=== PATIENT | female | born 1960 | race Caucasian/White ===

== ENCOUNTER → 2024-01-18 00:27 | Outpatient (CLI) | payer MEDICAID, SELFPAY ==
--- NOTE | 2024-01-18 | DI.MAMMO_ITS ---
Exam(s) MAMMO SCREENING EXAM: MAMMO SCREENING the [facility] CLINICAL HISTORY: SCREENING TECHNIQUE: Bilateral full field digital CC and MLO mammographic images were obtained with 3D tomosyn thesis and utilizing computer aided detection (CAD). COMPARISON: Available for comparison. FINDINGS: Masses/Architectural Distortion: None seen. Microcalcifications: No suspicious pleomorphic-type are seen. Skin Thickening/Nipple Retraction: None. IMPRESSION: 1. No significant interval change with no specific features of malignancy noted. 2. Unless there is more urgent need, screening mammography is recommended, as per [employer] guidelines. BI-RADS Category 1 - Negative Breast Density - Category C - Heterogeneously dense Breast density category C or D implies that the patient has dense breast tissue. Dense breast tissue is very common and is not abnormal but dense breast tissue can make it harder to find cancer on a ma mmogram. Also, dense breast tissue may increase their breast cancer risk. This information about the result of the mammogram report was provided to the patient to raise their awareness. Use this report when you speak with the patient about their risks for breast cancer, which includes their family hist ory. At that time, you may recommend for more screening tests (Ultrasound or MRI) as they might be us eful based on their risk. A negative radiographic report should not delay biopsy if a dominant or clinically suspicious mass is present. Up to ten percent of cancers are not identified on mammography. A negative report may reinforce clinical impression. Adenosis and dense breasts may obscure an underlying neoplasm. False positive reports average 6 to 10%. Patient will receive a letter notifying them of these results.
== END ==
PROVIDERS: PCP Obstetrics & Gynecology; Visit Provider Internal Medicine
DX: Z12.31 Encounter for screening mammogram for malignant neoplasm of breast (principal)
CPT/HCPCS: 77063; 77067

== ENCOUNTER → 2024-06-26 01:17 | Outpatient (CLI) | payer MEDICAID, SELFPAY ==
--- NOTE | 2024-06-26 | ETT_ITS ---
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 Rest Stress HR Resting HR Supine: 68 bpm Max Heart Rate (APMHR): 158 bpm Resting HR Standin bpm Target HR (85% APMHR): 134 bpm Max HR Achieved: 136 bpm % of APMHR: 86 Recovery HR: 80 bpm HR response to stress: Normal HR response to stress BP Resting BP Supine: 140/76 mmHg Resting BP Standin/68 mmHg Max BP: 168/88 mmHg Recovery BP: 128/78 mmHg BP response to stress: Normal blood pressure response to stress. ECG Resting ECG: Sinus Rhythm Ectopy: None Stress ECG: Sinus Tachycardia ST Change: No significant ST segment changes noted Arrhythmia: None Recovery ECG: Sinus Rhythm Recovery ST Change: No significant ST segment changes noted Recovery Arrhythmia: None Clinical Reason for Termination: Fatigue Stress Symptoms: 4/10 central sharp chest pain Exercise duration: 06 min30 sec Highest Stage Reached: Stage 3: 3.4 mph at 14% grade. Exercise capacity: 7.79 METs Angina Score: Non-Limiting Rate Pressure Product: [id number] Stress ECG Conclusion 1. Resting electrocardiogram showed low voltage 2. Patient exercised on the Hans protocol completed a workload of 7.79 METS 3. Normal heart rate and blood pressure response to exercise. The patient achieved 86% of predicted heart rate for age 4. There is no electrocardiographic evidence of myocardial ischemia 5. There were no dysrhythmias Stress Test Summary STAGE Time (mins) Speed (mph) Grade (%) HR BP SpO2 SYMPTOMS METS Supine 68 140/76 Standing 73 130/68 1 3 1.7 10 120 154/80 97% 4.5 2 6 2.5 12 132 160/88 95% 4/10 sharp chest pain 7 3 9 3.4 14 135 3/10 sharp chest pain 10 1 min recovery 111 168/88 95% 3 min recovery 82 140/78 97% Chest pain resolved 6 min recovery 80 128/78 96%
== END ==
PROVIDERS: PCP Obstetrics & Gynecology; Visit Provider Internal Medicine
DX: R06.09 Other forms of dyspnea (principal)
CPT/HCPCS: 93017

== ENCOUNTER 2024-07-10 05:12 | Outpatient (CLI) | payer MEDICAID, SELFPAY ==
[2024-07-10] MEDS: Levalbuterol HFA 15 GM INH 4 PUFF IH (15:47)
[2024-07-10] MEDS: Inhaler, Assist Device 1 EACH MC (15:47)
--- NOTE | 2024-07-14 15:40 | W.PFT ---
Date of service: 07/10/24 Time of Service: 13:00 Pulmonary Function Test Result Requesting Provider Kim Robles Indications: DONALDSON Impression Spirometry shows normal FEV1/FVC at 86%. Normal FEV1 and FVC. Patient declined lung volumes portion Normal diffusion and 94%. Normal flow volume curve Clinical Correlation therefore is recommended.
== END 2024-07-10 05:13 | disposition home or self-care (01) ==
PROVIDERS: PCP Obstetrics & Gynecology; Visit Provider Internal Medicine
DX: R06.09 Other forms of dyspnea (principal)
CPT/HCPCS: 00123; 94060; 94729

== ENCOUNTER 2024-08-05 08:18 | Outpatient (CLI) | payer MEDICAID, SELFPAY ==
--- NOTE | 2024-08-05 08:15 | RT.EKG_ITS ---
APPROVED REPORT Exam: Resting ECG Reason for Exam: RI SCAD Patient Location: O HR:55 bpm ECG Measurements Heart Rate 55 AXIS TN 160 P 25 QRSd 117 QRS 20 QT 423 T 4 QTc 405 Conclusion Sinus rhythm...normal P axis, V-rate 50- 99 Normal Electrocardiogram
== END 2024-08-05 08:19 | disposition home or self-care (01) ==
LOC: DI.CARD 08:18
PROVIDERS: PCP Obstetrics & Gynecology; Visit Provider Internal Medicine Cardiovascular Disease
DX: I21.4 Non-ST elevation (NSTEMI) myocardial infarction (principal)
CPT/HCPCS: 93010

== ENCOUNTER 2024-08-11 03:24 | Outpatient (CLI) | payer MEDICAID, SELFPAY ==
--- NOTE | 2024-08-11 | DI.US_ITS ---
APPROVED REPORT EXAM: Comprehensive 2D, Doppler, and color-flow Echocardiogram Patient Location: Out-Patient Inspection Machine Tender: Madie Peters RDCS (AE) Indications: Dyspnea Other Information Study Quality: Adequate Conclusion Normal left ventricular wall thickness and chamber size. Ejection fraction is 60%. Wall motion is n ormal Normal right ventricular size and function Both atria are normal in size There is no structural or hemodynamically significant valvular disease Wall motion Left Ventricle The left ventricle is normal size. The left ventricular systolic function is normal. The left ventric ular ejection fraction is within the normal range. There is normal left ventricular wall thickness. T here is normal LV segmental wall motion. There is no ventricular septal defect visualized. LVEF is 60 %. Right Ventricle The right ventricle is normal size. The right ventricular systolic function is normal. Atria The left atrium size is normal. The right atrium size is normal. The interatrial septum is intact wit h no evidence for an atrial septal defect. Aortic Valve The aortic valve is normal in structure. Aortic valve is trileaflet. There is no aortic valvular sten osis. No aortic regurgitation is present. Mitral Valve The mitral valve is normal in structure. No evidence of mitral valve stenosis. Trace mitral regurgita tion. Tricuspid Valve The tricuspid valve is normal in structure. There is no tricuspid valve stenosis. Trace tricuspid reg urgitation. Unable to assess PA pressure. Pulmonic Valve The pulmonary valve is normal in structure. There is no pulmonic valvular stenosis. Trace pulmonic re gurgitation. Great Vessels The aortic root is normal in size. The ascending aorta is normal in size. Aortic arch is normal in ca liber. IVC is normal in size and collapses >50% with inspiration. Pericardium There is no pericardial effusion. 2D Dimensions IVSD d PLAX 0.80 cm F: 0.6-1.0 Ao Root d 2.41 cm F: 2.7 - 3.3 LVPW d PLAX 0.82 cm F: 0.6 - 1.0 Ao Asc Diam d 3.12 cm F: 2.3 - 3.1 LVID d PLAX 4.47 cm F: 3.8 - 5.2 LVDs 3.09 cm F: 2.2 - 3.5 LV EF Teichholz 58.6 % FS 30.79 % LV EDV (Teich) 90.8 mL LV ESV (Teich) 37.6 mL M-Mode TAPSE 2.27 cm (M/F) >1.7 Auto EF LV EDV A4C 88.0 mL LV EDV A2C 63.0 mL LV EDV BP 75.7 mL LV ESV A4C 35.6 mL LV ESV A2C 26.8 mL LV ESV BP 31.0 mL LVEF(%) A4C 59.6 % LVEF(%) A2C 57.4 % LVEF(%) BP 59.0 % LV SV A4C 52.5 ml LV SV A2C 36.2 ml LV SV BP 44.7 ml LV CO A4C 2.7 L/min LV CO A2C 1.9 L/min LV CO BP 2.3 L/min HR A4C 51.43 BPM HR A2C 53.18 BPM LV EDV Index (BP) LA Volume LA Length A4C 5.2 cm LA Length A2C 5.3 cm LA Area A4C s 15.82 cm2 LA Area A2C s 13.61 cm2 LA Vol A4C A-L 41.13 mL LA Vol A2C A-L 29.88 mL LA Vol Biplane A-L 35.4 mL LA Vol/BSA A4C A-L LA Vol/BSA A2C A-L LA Vol/BSA BP A-L 21.3 mL/m2 LA Vol A4C MOD 36.8 mL LA Vol A2C MOD 28.7 mL LA Vol BP MOD 32.7 mL RA Volume RA Area A4C 10.6 cm2 RA ESV A4C (A-L) 20.8mL RA Vol/BSA A4C A-L RA Length A4C 4.6 cm RA ESV A4C (MOD) 20.8mL LV Diastology MV E' medial 0.086 (>0.07 m/s) MV E Vmax 0.59 (0.4-1.3 m/s) MV E/E' MED 6.86 (<14) MV A Vmax 0.70 (0.4-1.3 m/s) MV E' lateral 0.111 (>0.1 m/s) E/A Ratio 0.8 MV E/E' LAT 5.34 (<14) MV E' Average 0.099 m/s MV E/E'(average) 6.00 Aortic Valve AoV Vmax 1.35 m/s LVOT Vmax 1.18 m/s AoV Peak Grad 7.3 mmHg LVOT Peak Grad 5.5 mmHg AoV Area (Vmax) 2.41 cm2 LVOT VTI 0.266 m AoV VTI 0.323 m LVOT Mean Grad 2.9 mmHg AoV Mean Jacky. 0.93 m/s LVOT SV 73.50 mL AoV Mean Grad 4.0 mmHg LVOT Diam s 1.85 cm AoV Area (VTI) 2.28 cm2 AV Regurg Peak Gr. 7.26 mmHg Velocity Ratio 0.87 Mitral Valve MV DT 198 (160-240 msec) MV Vmax TIPS 0.67 m/s MV Mean Grad 0.7 (<2mmHg) MV VTI 0.266 m Pulmonary Valve PV Vmax 0.94 (0.5-1.5 m/s) RVOT Vmax 0.67 m/s PV Peak Grad 3.5 mmHg RVOT Peak Gr. 1.8 mmHg PV Mean Jacky 0.62 m/s RVOT VTI 0.174 m PV Mean Grad 1.7 mmHg RVOT Mean Gr. 1.0 mmHg Tricuspid Valve RA Pressure 3.00 mmHg TV S' 0.11 m/s
== END 2024-08-11 03:44 ==
LOC: DI 03:24
PROVIDERS: PCP Obstetrics & Gynecology; Visit Provider Internal Medicine
DX: R06.00 Dyspnea, unspecified (principal)
CPT/HCPCS: 93306